=== PATIENT | female | born 1990 | race Two or more races ===

== ENCOUNTER 2018-06-19 06:45 | Inpatient (IN) | payer MEDICAID, OTHER ==
[2018-06-19] MEDS ORDERED: Lactated Ringers 1,000 ML ONE (07:16)
[2018-06-19] MEDS ORDERED: Sodium Chloride 0.9% 10 ML Syringe FLUSH PRN (07:27)
[2018-06-19] MEDS ORDERED: Ondansetron 4 MG/2 ML SDV IVPUSH PRN ×2 (07:27→17:00)
[2018-06-19] MEDS ORDERED: Nalbuphine 20 MG/ML 1 ML Syringe IVPUSH PRN (07:27)
[2018-06-19] MEDS ORDERED: Lidocaine 1% 50 ML MDV INJECT ONE (07:27)
[2018-06-19] MEDS ORDERED: Oxytocin/Lactated Ringers 10 UNIT/1,000 ML BAG IV SCH ×3 (07:30→09:00)
[2018-06-19] MEDS: Lactated Ringers 1,000 ML IV SCH ×3 (08:15→19:41)
[2018-06-19] MEDS ORDERED: Bupivacaine/fentaNYL/NS 100 ML Bag EPIDUR SCH (17:00)
[2018-06-19] MEDS ORDERED: ePHEDrine 50 MG/ML SDV IVPUSH PRN (17:00)
[2018-06-19] MEDS ORDERED: fentaNYL 100 MCG/2 ML SDV EPIDUR PRN (17:00)
[2018-06-19] MEDS ORDERED: diphenhydrAMINE 50 MG/ML SDV IVPUSH PRN (17:00)
--- NOTE | 2018-06-19 18:16 | PCM.PREANE ---
Preanesthetic Assessment - Procedure Proposed Procedure: KAMRYN - Anesthesia/Transfusion/Family Hx Anesthesia History: Prior Anesthesia Without Reaction Family History of Anesthesia Reaction: No Transfusion History: No Prior Transfusion(s) - Review of Systems General: No Symptoms Pulmonary: No Symptoms Cardiovascular: No Symptoms Gastrointestinal: No Symptoms Neurological: No Symptoms Other: Reports: None - Physical Assessment NPO Status Date: 06/19/18 NPO Status Time: 11:00 Pulse: 72 O2 Sat by Pulse Oximetry: 100 Respiratory Rate: 16 Blood Pressure: 111/66 Vital Signs: Last Vital Signs Temp 36.5 C 06/19/18 07:27 Pulse 72 06/19/18 15:31 Resp 16 06/19/18 07:27 BP 111/66 06/19/18 15:31 Pulse Ox 100 06/19/18 07:27 Height: 1.63 m Weight: 85.275 kg ASA Class: 2 Mental Status: Alert & Oriented x3 Airway Class: Mallampati = 1 Dentition: Reports: Normal Dentition Thyro-Mental Finger Breadths: 3 Mouth Opening Finger Breadths: 3 ROM/Head Extension: Full Lungs: Clear to Auscultation, Normal Respiratory Effort Cardiovascular: Regular Rate, Regular Rhythm - Lab Values: Laboratory Last Values WBC 7.73 K/mm3 (3.98-10.04) 06/19/18 07:38 RBC 4.86 M/mm3 (3.98-5.22) 06/19/18 07:38 Hgb 11.6 gm/L (11.2-15.7) 06/19/18 07:38 Hct 36.9 % (34.1-44.9) 06/19/18 07:38 MCV 75.9 fl (79.4-94.8) L 06/19/18 07:38 MCH 23.9 pg (25.6-32.2) L 06/19/18 07:38 MCHC 31.4 g/dl (32.2-35.5) L 06/19/18 07:38 RDW Std Deviation 42.0 fL (36.4-46.3) 06/19/18 07:38 Plt Count 287 K/mm3 (182-369) 06/19/18 07:38 MPV 10.0 fl (9.4-12.3) 06/19/18 07:38 Neut % (Auto) 69.4 % (34.0-71.1) 06/19/18 07:38 Lymph % (Auto) 21.2 % (19.3-51.7) 06/19/18 07:38 [place] % (Auto) 7.2 % (4.7-12.5) 06/19/18 07:38 Eos % (Auto) 1.6 (0.7-5.8) 06/19/18 07:38 Baso % (Auto) 0.1 % (0.1-1.2) 06/19/18 07:38 Neut # (Auto) 5.36 K/mm3 (1.56-6.13) 06/19/18 07:38 Lymph # (Auto) 1.64 K/mm3 (1.18-3.74) 06/19/18 07:38 [place] # (Auto) 0.56 K/mm3 (0.24-0.36) H 06/19/18 07:38 Eos # (Auto) 0.12 K/mm3 (0.04-0.36) 06/19/18 07:38 Baso # (Auto) 0.01 K/mm3 (0.01-0.08) 06/19/18 07:38 RPR Non-reactive (NONREACTIVE) 06/19/18 07:38 - Allergies Allergies/Adverse Reactions: Allergies Allergy/AdvReac Type Severity Reaction Status Date / Time No Known Allergies Allergy Verified 06/20/15 20:14 - Blood Blood Available: No Product(s) Available: None - Anesthesia Plan Pre-Op Medication Ordered: None - Acknowledgements Anesthesia Type Planned: Epidural Pt an Appropriate Candidate for the Planned Anesthesia: Yes Alternatives and Risks of Anesthesia Discussed w Pt/Guardian: Yes Pt/Guardian Understands and Agrees with Anesthesia Plan: Yes PreAnesthesia Questionnaire - Past Health History Medical/Surgical History: Denies Medical/Surgical History [employer]TE[employer]CE [employer]PER[employer]ENDENT History: Reports: - Past Surgical History Other HEENT Surgeries/Procedures: Teeth pulled in lifetime - SUBSTANCE USE Smoking Status *Q: Never Smoker Second Hand Smoke Exposure: No Recreational Drug Use History: No - CURRENT (IN HOUSE) MEDS Current Meds: Current Medications Diphenhydramine HCl (Benadryl) 25 mg IVPUSH Q6H PRN PRN Reason: Pruritis Ephedrine Sulfate (Ephedrine Sulfate) 5 mg IVPUSH ASDIRECTED PRN PRN Reason: Hypotension Fentanyl (Sublimaze) 100 mcg EPIDUR Q3H PRN PRN Reason: Pain Last Admin: 06/19/18 17:32 Dose: 100 mcg Fentanyl/Bupivacaine HCl (Fentanyl/Bupivacaine/Ns 2 Mcg-0.125% 100 Ml) 100 ml EPIDUR ASDIRECTED SOPHY Last Admin: 06/19/18 17:33 Dose: 100 ml Lactated Ringer's (Ringers, Lactated) 1,000 mls @ 100 mls/hr IV ASDIRECTED SOPHY Last Admin: 06/19/18 08:15 Dose: 100 mls/hr Oxytocin/Lactated Ringer's (Pitocin In Lr 10 Units/1,000 Ml) 10 unit in 1,000 mls @ 100 mls/hr IV .CONTINUOUS SOPHY Oxytocin/Lactated Ringer's (Pitocin In Lr 10 Units/1,000 Ml) 10 unit in 1,000 mls @ 500 mls/hr IV .CONTINUOUS SOPHY Oxytocin/Lactated Ringer's (Pitocin In Lr 10 Units/1,000 Ml) 10 unit in 1,000 mls @ 12 mls/hr IV TITRATE SOPHY; Protocol Last Titration: 06/19/18 16:01 Dose: 16 munits/min, 96 mls/hr Nalbuphine HCl (Nubain) 10 mg IVPUSH Q2H PRN PRN Reason: pain Ondansetron HCl (Zofran) 4 mg IVPUSH Q4H PRN PRN Reason: Nausea/Vomiting Ondansetron HCl (Zofran) 4 mg IVPUSH ONETIME PRN PRN Reason: Nausea/Vomiting Sodium Chloride (Saline Flush) 10 ml FLUSH ASDIRECTED PRN PRN Reason: Keep Vein Open Discontinued Medications Lactated Ringer's (Ringers, Lactated) Confirm Administered Dose 1,000 mls @ as directed .ROUTE .STK-MED ONE Stop: 06/19/18 07:17 Oxytocin 10 unit/ Lactated (Ringer's) 1,001 mls @ 12.01 mls/hr IV TITRATE SOPHY; Protocol Lidocaine HCl (Xylocaine 1%) 10 ml INJECT ONETIME ONE Stop: 06/19/18 07:28
--- NOTE | 2018-06-19 20:25 | PCM.SN ---
- Free Text/Narrative Note: Julisa is a 28-year-old 3 para 2001 female was admitted on the a.m. of 06/19/2018 for elective induction of labor because of the distance from the hospital and multiparous status. Induction started with Pitocin and then was augmented with artificial rupture membranes which resulted in clear amniotic fluid. Patient continued to progress well and became completely dilated at 1930 hrs. Patient had an epidural in place for labor and analgesia. The patient pushed twice and delivered the baby. The baby was a viable, bustillo, female infant with Apgars of 8 and 9, a weight of 3290 g (7 pounds 4.1 ounces) and a length of 20.0 inches and was born at 1956 hrs. in a right occiput anterior position. Baby was placed on mom's abdomen, nose and mouth were bulb suctioned. Pitocin was started IV to facilitate increase uterine tone and decreased likelihood of bleeding. The umbilical cord was clamped and S2 and then cut by the baby's father. The umbilical cord had 3 vessels. Cord blood was obtained. Patient is noted to have no perineal or vaginal lacerations and no stitches were required. The placenta delivered in a Varma presentation at 2001 hours, appeared intact and complete and was discarded per patient desire. The patient plans to breast-feed. Assessment blood loss was 100 mL. Condition: Good
[2018-06-19] MEDS ORDERED: Docusate Sodium 100 MG Cap PO PRN (21:26)
[2018-06-19] MEDS ORDERED: Lanolin 100% Cream 7 GM Tube TOP PRN (21:26)
[2018-06-19] MEDS ORDERED: Acetaminophen 325 MG Tab PO PRN (21:26)
[2018-06-19] MEDS ORDERED: Witch Hazel Medicated Pads 100/Jar TOP PRN (21:26)
[2018-06-19] MEDS ORDERED: Benzocaine/Menthol 20%-0.5% Spray 56 GM Canister TOP PRN (21:26)
[2018-06-19] MEDS ORDERED: Bupivacaine 0.25% 10 ML SDV ONE (22:00)
[2018-06-19] MEDS: Ibuprofen 600 MG Tab PO PRN (22:27)
[2018-06-20] MEDS ORDERED: Prenatal Multivitamin with Calcium/Folic Acid/Iron Tab PO SCH (09:00)
--- NOTE | 2018-06-20 10:55 | PCM48HPAN ---
Post Anesthesia Note - EVALUATION WITHIN 48HRS OF ANESTHETIC Vital Signs in Normal Range: Yes Patient Participated in Evaluation: Yes Respiratory Function Stable: Yes Airway Patent: Yes Cardiovascular Function Stable: Yes Hydration Status Stable: Yes Pain Control Satisfactory: Yes Nausea and Vomiting Control Satisfactory: Yes Mental Status Recovered: Yes Pulse Rate: 64 Resp Rate: 14 Temperature: 36.9 C Blood Pressure: 96/51
[2018-06-20] MEDS: Ibuprofen 600 MG Tab PO PRN (12:18)
--- NOTE | 2018-06-20 18:00 | PCM.DCSUM1 ---
Discharge Summary - Hospital Course Free Text/Narrative:: Julisa is a 28-year-old 3 para 2002 female was admitted on the a.m. of 06/19/2018 for elective induction of labor because of the distance from the hospital and multiparous status. Induction started with Pitocin and then was augmented with artificial rupture membranes which resulted in clear amniotic fluid. Patient continued to progress well and became completely dilated at 1930 hrs. Patient had an epidural in place for labor and analgesia. The patient pushed twice and delivered the baby. The baby was a viable, bustillo, female infant with Apgars of 8 and 9, a weight of 3290 g (7 pounds 4.1 ounces) and a length of 20.0 inches and was born at 1956 hrs. in a right occiput anterior position. Baby was placed on mom's abdomen, nose and mouth were bulb suctioned. Pitocin was started IV to facilitate increase uterine tone and decreased likelihood of bleeding. The umbilical cord was clamped and S2 and then cut by the baby's father. The umbilical cord had 3 vessels. Cord blood was obtained. Patient is noted to have no perineal or vaginal lacerations and no stitches were required. The placenta delivered in a Varma presentation at 2001 hours, appeared intact and complete and was discarded per patient desire. The patient plans to breast-feed. Assessment blood loss was 100 mL. Patient doing well. Has minimal lochia, voiding well. She is nursing and bottle feeding. Patient is desiring discharge home. Diagnosis: Stroke: No - Discharge Data Discharge Date: 06/20/18 Discharge Disposition: Home, Self-Care 01 Condition: Good - Patient Instructions Diet: Regular Diet as Tolerated (Nursing diet with increase calories and calcium is discussed) Activity: As Tolerated ([place] or tampons until bleeding resolves.) Driving: Do Not Drive Showering/Bathing: May Shower (May take a bath) Notify Provider of: Fever, Increased Pain, Swelling and Redness, Nausea and/or Vomiting - Discharge Plan *PRESCRIPTION DRUG MONITORING PROGRAM REVIEWED*: No *COPY OF PRESCRIPTION DRUG MONITORING REPORT IN PATIENT [place]: No Home Medications: Home Meds Acetaminophen [Tylenol] 650 mg PO Q4H PRN tablet 06/20/18 [Rx] Ibuprofen [Motrin] 600 mg PO Q4H PRN tablet 06/20/18 [Rx] Vit with Ca/FA/Iron [ Plus Iron] 1 each PO DAILY tablet [Rx] Referrals: Aravind Fernandez MD [Primary Care Provider] - (RTC-Dr. Fernandez-2 weeks) - Discharge Summary/Plan Comment DC Time >30 min.: No Discharge Summary/Plan Comment: Discharge instructions: 1. Regular nursing diet 2. Routine activity 3. Call for increased pain, bleeding 4. Meds per home med sheet 5. RTC 2 weeks-Dr. Fernandez - Patient Data Vitals - Most Recent: Last Vital Signs Temp 37.0 C 06/20/18 15:00 Pulse 71 06/20/18 15:00 Resp 15 06/20/18 15:00 BP 92/78 06/20/18 15:00 Pulse Ox 98 06/20/18 15:00 Weight - Most Recent: 85.275 kg I&O - Last 24 hours: Intake & Output 06/20/18 06/20/18 06/20/18 06:59 14:59 22:59 Intake Total 2000 560 Output Total 1350 Balance 650 560 Med Orders - Current: Current Medications Acetaminophen (Tylenol) 650 mg PO Q4H PRN PRN Reason: mild pain or fever Benzocaine/Menthol (Dermoplast Pain Relief [place]) 0 gm TOP ASDIRECTED PRN PRN Reason: Perineal Comfort Measure Docusate Sodium (Colace) 100 mg PO BID PRN PRN Reason: Constipation Emollient Ointment (Lansinoh Hpa) 0 gm TOP ASDIRECTED PRN PRN Reason: Sore Nipples Ibuprofen (Motrin) 600 mg PO Q4H PRN PRN Reason: Mild pain or fever Last Admin: 06/20/18 12:18 Dose: 600 mg Prenat Multivit/Manager Equipment/Iron/Folic Ac ( Plus Iron) 1 each PO DAILY SOPHY Last Admin: 06/20/18 14:05 Dose: Not Given Witch [place] (Tucks) 1 pad TOP ASDIRECTED PRN PRN Reason: Hemorrhoid pain Discontinued Medications Diphenhydramine HCl (Benadryl) 25 mg IVPUSH Q6H PRN PRN Reason: Pruritis Ephedrine Sulfate (Ephedrine Sulfate) 5 mg IVPUSH ASDIRECTED PRN PRN Reason: Hypotension Fentanyl (Sublimaze) 100 mcg EPIDUR Q3H PRN PRN Reason: Pain Last Admin: 06/19/18 17:32 Dose: 100 mcg Fentanyl/Bupivacaine HCl (Fentanyl/Bupivacaine/Ns 2 Mcg-0.125% 100 Ml) 100 ml EPIDUR ASDIRECTED SOPHY Last Admin: 06/19/18 17:33 Dose: 100 ml Lactated Ringer's (Ringers, Lactated) Confirm Administered Dose 1,000 mls @ as directed .ROUTE .STK-MED ONE Stop: 06/19/18 07:17 Last Admin: 06/19/18 18:25 Dose: Not Given Lactated Ringer's (Ringers, Lactated) 1,000 mls @ 100 mls/hr IV ASDIRECTED SOPHY Last Admin: 06/19/18 19:41 Dose: 100 mls/hr Oxytocin/Lactated Ringer's (Pitocin In Lr 10 Units/1,000 Ml) 10 unit in 1,000 mls @ 100 mls/hr IV .CONTINUOUS SOPHY Last Infusion: 06/19/18 22:00 Dose: 250 mls/hr Oxytocin/Lactated Ringer's (Pitocin In Lr 10 Units/1,000 Ml) 10 unit in 1,000 mls @ 500 mls/hr IV .CONTINUOUS SOPHY Oxytocin 10 unit/ Lactated (Ringer's) 1,001 mls @ 12.01 mls/hr IV TITRATE SOPHY; Protocol Oxytocin/Lactated Ringer's (Pitocin In Lr 10 Units/1,000 Ml) 10 unit in 1,000 mls @ 12 mls/hr IV TITRATE SOPHY; Protocol Last Titration: 06/19/18 18:48 Dose: 20 munits/min, 120 mls/hr Lidocaine HCl (Xylocaine 1%) 10 ml INJECT ONETIME ONE Stop: 06/19/18 07:28 Last Admin: 06/19/18 18:25 Dose: Not Given Nalbuphine HCl (Nubain) 10 mg IVPUSH Q2H PRN PRN Reason: pain Ondansetron HCl (Zofran) 4 mg IVPUSH Q4H PRN PRN Reason: Nausea/Vomiting Ondansetron HCl (Zofran) 4 mg IVPUSH ONETIME PRN PRN Reason: Nausea/Vomiting Sodium Chloride (Saline Flush) 10 ml FLUSH ASDIRECTED PRN PRN Reason: Keep Vein Open
[2018-06-20 23:45] VITALS: BP 98/65
== END 2018-06-20 21:50 | disposition home or self-care (01) | DRG 775 ==
LOC: JD.OB 06:45 → JD.OBCHECK 06:45 → JD.OB 07:27 → OBSVTOIN 19:56 → JD.OB 19:57
PROVIDERS: ADMIT Obstetrics & Gynecology; ATTEND Obstetrics & Gynecology
PROC: 3E033VJ Introduction of Other Hormone into Peripheral Vein, Percutaneous Approach (ICD-10-PCS; principal; 2018-06-19)
PROC: 10E0XZZ Delivery of Products of Conception, External Approach (ICD-10-PCS; principal; 2018-06-19)
PROC: 6A550ZT Pheresis of Cord Blood Stem Cells, Single (ICD-10-PCS; principal; 2018-06-19)
PROC: 10907ZC Drainage of Amniotic Fluid, Therapeutic from Products of Conception, Via Natural or Artificial Opening (ICD-10-PCS; principal; 2018-06-19)
PROC: 3E0R3BZ Introduction of Anesthetic Agent into Spinal Canal, Percutaneous Approach (ICD-10-PCS; 2018-06-19)
PROC: 00HU33Z Insertion of Infusion Device into Spinal Canal, Percutaneous Approach (ICD-10-PCS; 2018-06-19)
DX: O80 Encounter for full-term uncomplicated delivery (principal); Z3A.39 39 weeks gestation of pregnancy; Z37.0 Single live birth
CPT/HCPCS: 36415; 51702; 59025; 59409; 85025; 85027; 86592; A9270-GY; J2590; J3010; J3490; J7120